=== PATIENT | female | born 1955 | race Caucasian/White ===

== ENCOUNTER → 2016-11-21 | Outpatient (CLI) | payer BC | LOC: MW.MNT 14:23 | CPT/HCPCS: 97802 ==

== ENCOUNTER → 2017-01-08 | Outpatient (CLI) | payer BC | LOC: MW.MNT 12:57 | PROVIDERS: ATTEND Nurse Practitioner Adult Health | DX: E66.01 Morbid (severe) obesity due to excess calories (principal); E78.2 Mixed hyperlipidemia; R73.03 Prediabetes | CPT/HCPCS: 97802 ==

== ENCOUNTER 2017-03-05 08:59 | Day surgery (SDC) | payer BC ==
[~2017-03-05 08:59] MED LIST: Lactated Ringers 1,000 ML IV SCH; Lidocaine 2% 5 ML SDV ONE; Propofol 200 MG/20 ML SDV ONE; fentaNYL 100 MCG/2 ML SDV ONE
[2017-03-05] MEDS ORDERED: Neostigmine Methylsulfate 1 MG/ML 5 ML Syringe ONE (09:02)
--- NOTE | 2017-03-05 09:55 | PCM.PREANE ---
Preanesthetic Assessment - Anesthesia/Transfusion/Family Hx Anesthesia History: Prior Anesthesia Without Reaction Family History of Anesthesia Reaction: No Transfusion History: No Prior Transfusion(s) Intubation History: Unknown - Review of Systems General: No Symptoms Pulmonary: No Symptoms Cardiovascular: No Symptoms Gastrointestinal: No symptoms Neurological: No Symptoms Other: Reports: None - Physical Assessment O2 Sat by Pulse Oximetry: 96 Respiratory Rate: 16 Vital Signs: Last Vital Signs Temp 36.5 C 03/05/17 09:18 Pulse 80 03/05/17 09:18 Resp 16 03/05/17 09:18 BP 131/88 03/05/17 09:18 Pulse Ox 96 03/05/17 09:18 Height: 1.63 m Weight: 129.274 kg ASA Class: 2 Mental Status: Alert & Oriented x3 Airway Class: Mallampati = 2 Dentition: Reports: Normal Dentition Thyro-Mental Finger Breadths: 2 Mouth Opening Finger Breadths: 3 ROM/Head Extension: Full Lungs: Clear to auscultation, Normal respiratory effort Cardiovascular: Regular Rate, Regular Rhythm - Allergies Allergies/Adverse Reactions: Allergies Allergy/AdvReac Type Severity Reaction Status Date / Time No Known Allergies Allergy Verified 02/28/17 11:03 - Blood Blood Available: No - Anesthesia Plan Pre-Op Medication Ordered: None - Acknowledgements Anesthesia Type Planned: MAC Pt an Appropriate Candidate for the Planned Anesthesia: Yes Alternatives and Risks of Anesthesia Discussed w Pt/Guardian: Yes Pt/Guardian Understands and Agrees with Anesthesia Plan: Yes PreAnesthesia Questionnaire HEENT History: Reports: Other (See Below) Other HEENT History: wears glasses Cardiovascular History: Reports: High Cholesterol, Hypertension Genitourinary History: Reports: None 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: Endocrine/Metabolic History: Reports: Obesity/BMI 30+ (BMI 48.9) - Past Surgical History Head Surgeries/Procedures: Reports: None (x2) Female Surgical History: Reports: Section - SUBSTANCE USE Smoking Status *Q: Never Smoker Recreational Drug Use History: No - HOME MEDS Home Medications: Home Meds Losartan/Hydrochlorothiazide [Hyzaar 50-12.5 Tablet] 1 tab PO DAILY 02/28/17 [ History] atorvaSTATin Calcium [Atorvastatin Calcium] 20 mg PO DAILY 02/28/17 [History] - CURRENT (IN HOUSE) MEDS Current Meds: Current Medications Lactated Ringer's (Ringers, Lactated) 1,000 mls @ 125 mls/hr IV ASDIRECTED BENI Discontinued Medications Fentanyl (Sublimaze) Confirm Administered Dose 100 mcg .ROUTE .STK-MED ONE Stop: 03/05/17 08:27 Glycopyrrolate () Confirm Administered Dose 1 mg .ROUTE .STK-MED ONE Stop: 03/05/17 09:03 Lidocaine (Xylocaine-Mpf 2%) Confirm Administered Dose 5 ml .ROUTE .STK-MED ONE Stop: 03/05/17 08:27 Neostigmine Methylsulfate (Neostigmine) Confirm Administered Dose 5 mg .ROUTE .STK-MED ONE Stop: 03/05/17 09:03 Propofol (Diprivan 20 Ml) Confirm Administered Dose 400 mg .ROUTE .STK-MED ONE Stop: 03/05/17 08:27
[2017-03-05] MEDS ORDERED: Lidocaine 2% 5 ML SDV ONE (11:50)
[2017-03-05] MEDS ORDERED: fentaNYL 100 MCG/2 ML SDV ONE (11:50)
--- NOTE | 2017-03-05 12:04 | PCM.OPNOTE ---
- General Post-Op/Procedure Note Date of Surgery/Procedure: 03/05/17 Findings: see dict [id number] Pre Op Diagnosis: scrn colonoscopy Post-Op Diagnosis: Same Anesthesia Technique: Moderate sedation Primary Surgeon: Herbert Rojas Complications: None Condition: Good
[2017-03-05 12:16] VITALS: BP 115/62
--- NOTE | 2017-03-05 12:27 | PCM.POSTAN ---
POST ANESTHESIA ASSESSMENT - MENTAL STATUS Mental Status: alert, oriented - RESPIRATORY Respiratory Status: respiratory rate WNL, airway patent, O2 saturation stable - CARDIOVASCULAR CV Status: pulse rate WNL, blood pressure stable - GASTROINTESTINAL GI Status: no symptoms - POST OP HYDRATION Hydration Status: adequate & stable - OBSERVATIONS Free Text/Narrative:: no anesthesia problems
--- NOTE | 2017-03-05 18:46 | OR ---
SURGEON: Herbert Rojas MD DATE OF PROCEDURE: 03/05/2017 PREOPERATIVE DIAGNOSIS: Screening colonoscopy. POSTOPERATIVE DIAGNOSIS: Diverticulosis. COMPLICATIONS: None. FINDINGS: 1. The patient is easily sedated with VISUAL EDUCATION DIRECTOR and Diprivan. The patient is soundly snoring. 2. Bowel prep is average with moderate amount of liquid stool. No semi-formed stool. 3. The patient's colon was rather redundant at the sigmoid colon requiring several maneuvering in order to get to the cecum. Cecum can only be seen at the distant indicated by ileocecal fold, one-to-one indentation, light immittance, appendix orifice is not observed. Mucosa examined upon scope pulling out. The patient has very mild diverticulosis on the right colon, just a couple of them. No signs or symptoms of diverticulitis. No mass, polyp, inflammation, stricture, AV malformation, ulceration, bleeding, and the patient has quite several small hemorrhoids, and the patient also has one large anal tag. DESCRIPTION OF PROCEDURE: The patient was taken to the endoscopy room. A time out was called, patient identified, and procedure identified. Diprivan was then administrated. Patient went from awake to sleep, hearing doctor talking or door closing is normal. Perineum inspection and digital examination were then performed. A well- lubricated colonoscope was gently inserted through the rectum, advanced past the rectosigmoid junction, the descending colon, splenic flexure, transverse colon, hepatic flexure, ascending colon, arrived to the cecum. Cecum was identified as dictated in the finding. Then the scope was carefully withdrawn while attention was paid to the mucosal surface for any abnormality. Air will be sucked out during the scope withdrawal. At the rectum, retroflexed to examine any rectal diseases, fistula or hemorrhoids. The patient tolerated procedure well. There were no intraoperative complications, and Dr. Rojas was present throughout the whole procedure. The patient would benefit from repeat colonoscopy 10 years from today or if clinically indicated. Thank you for the kind referral. RUDY / YARON /[id number]
== END 2017-03-05 13:00 | disposition home or self-care (01) ==
LOC: MW.SDS 08:59
PROVIDERS: ATTEND Surgery
DX: Z12.11 Encounter for screening for malignant neoplasm of colon (principal); K57.30 Diverticulosis of large intestine without perforation or abscess without bleeding; E78.00 Pure hypercholesterolemia, unspecified; I10 Essential (primary) hypertension; E66.9 Obesity, unspecified; Z68.42 Body mass index [BMI] 45.0-49.9, adult; Z79.899 Other long term (current) drug therapy; Z98.890 Other specified postprocedural states
CPT/HCPCS: 45378; J3010; J7120; J2704

== ENCOUNTER 2017-07-11 09:40 | Day surgery (SDC) | payer BC ==
[~2017-07-11 09:40] MED LIST changes: +Bupivacaine 25%/EPINEPHrine/PF 30 ML ONE; -Lidocaine 2% 5 ML SDV ONE; +Octyl 2-Cyanoacrylate 1 Tube ONE; -Propofol 200 MG/20 ML SDV ONE; +ceFAZolin 2 GM in Premix Bag 1 BAG IV ONE; -fentaNYL 100 MCG/2 ML SDV ONE
[2017-07-11] MEDS ORDERED: Scopolamine 1.5 MG Transdermal Patch TRDERM PRN (10:31)
--- NOTE | 2017-07-11 10:31 | PCM.PREANE ---
Preanesthetic Assessment - Anesthesia/Transfusion/Family Hx Anesthesia History: Prior Anesthesia Without Reaction Family History of Anesthesia Reaction: No Transfusion History: No Prior Transfusion(s) Intubation History: Unknown - Review of Systems General: No Symptoms Pulmonary: No Symptoms Cardiovascular: No Symptoms Gastrointestinal: No Symptoms Neurological: No Symptoms Other: Reports: None - Physical Assessment Height: 1.63 m Weight: 129.274 kg ASA Class: 3 Mental Status: Alert & Oriented x3 Airway Class: Mallampati = 2 Dentition: Reports: Normal Dentition Thyro-Mental Finger Breadths: 2 Mouth Opening Finger Breadths: 2 ROM/Head Extension: Full Lungs: Clear to Auscultation, Normal Respiratory Effort Cardiovascular: Regular Rate, Regular Rhythm - Allergies Allergies/Adverse Reactions: Allergies Allergy/AdvReac Type Severity Reaction Status Date / Time No Known Allergies Allergy Verified 02/28/17 11:03 - Blood Blood Available: No - Anesthesia Plan Pre-Op Medication Ordered: None - Acknowledgements Anesthesia Type Planned: General Anesthesia Pt an Appropriate Candidate for the Planned Anesthesia: Yes Alternatives and Risks of Anesthesia Discussed w Pt/Guardian: Yes Pt/Guardian Understands and Agrees with Anesthesia Plan: Yes PreAnesthesia Questionnaire HEENT History: Reports: Other (See Below) Other HEENT History: wears glasses Cardiovascular History: Reports: High Cholesterol, Hypertension Gastrointestinal History: Reports: None Genitourinary History: Reports: None 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: Endocrine/Metabolic History: Reports: Obesity/BMI 30+ (BMI 48.9), Other (See Below) (borderline DM (on metforin)) - Past Surgical History Head Surgeries/Procedures: Reports: None GI Surgical History: Reports: Colonoscopy Female Surgical History: Reports: Section (x2) - SUBSTANCE USE Smoking Status *Q: Never Smoker Recreational Drug Use History: No - HOME MEDS Home Medications: Home Meds Losartan/Hydrochlorothiazide [Hyzaar 50-12.5 Tablet] 1 tab PO DAILY 02/28/17 [ History] atorvaSTATin Calcium [Atorvastatin Calcium] 20 mg PO DAILY 02/28/17 [History] metFORMIN [Glucophage XR] 500 mg PO BIDMEALS 07/08/17 [History] - CURRENT (IN HOUSE) MEDS Current Meds: Current Medications Lactated Ringer's (Ringers, Lactated) 1,000 mls @ 125 mls/hr IV ASDIRECTED [facility] Last Admin: 07/11/17 10:14 Dose: 125 mls/hr Discontinued Medications Lactated Ringer's (Ringers, Lactated) 1,000 mls @ 125 mls/hr IV ASDIRECTED BENI Cefazolin Sodium/Dextrose 2 gm (/ Premix) 50 mls @ 100 mls/hr IV ONETIME ONE Stop: 04/30/17 05:29 Cefazolin Sodium/Dextrose 2 gm (/ Premix) 50 mls @ 100 mls/hr IV ONETIME ONE Stop: 07/11/17 05:29 Bupivacaine HCl/Epinephrine Bitart (Sensorc Mpf 0.25%-Epi [id number]) Confirm Administered Dose 30 mls @ as directed .ROUTE .STK-MED ONE Stop: 07/11/17 08:28 Octyl Cyanoacrylate (Dermabond Advance) Confirm Administered Dose 1 applic .ROUTE .STK-MED ONE Stop: 07/11/17 08:32
[2017-07-11] MEDS ORDERED: Propofol 200 MG/20 ML SDV ONE (10:32)
[2017-07-11] MEDS ORDERED: Midazolam 1 MG/ML 2 ML SDV ONE (10:32)
[2017-07-11] MEDS ORDERED: fentaNYL 100 MCG/2 ML SDV ONE (10:32)
[2017-07-11] MEDS ORDERED: Neostigmine Methylsulfate 1 MG/ML 5 ML Syringe ONE ×2 (10:33→10:41)
[2017-07-11] MEDS ORDERED: Ketorolac 30 MG/ML SDV ONE (10:33)
[2017-07-11] MEDS ORDERED: Ondansetron 4 MG/2 ML SDV ONE (10:33)
[2017-07-11] MEDS ORDERED: Rocuronium 10 MG/ML 10 ML Syringe ONE (10:33)
[2017-07-11] MEDS ORDERED: ceFAZolin 1 GM Vial ONE (11:30)
--- NOTE | 2017-07-11 12:24 | PCM.OPNOTE ---
- General Post-Op/Procedure Note Date of Surgery/Procedure: 07/11/17 Operative Procedure(s): incarcerated incisional hernia repair, no mesh used Findings: large hernia sac 7 cm, but small hernia neck 2 cm, chronically fibrosed suggested chronicity; repaired primarily, no mesh used; hernia is the upper extreme of lower ML incision, right centered at umb; [id number] Pre Op Diagnosis: incarcerated incisional hernia Post-Op Diagnosis: Same Anesthesia Technique: General ET Tube Primary Surgeon: Herbert Rojas Pathology: hernia sac Complications: None Condition: Good
[2017-07-11] MEDS ORDERED: Acetaminophen/oxyCODONE 325-10 MG Tab PO ONE (12:27)
[2017-07-11] MEDS: fentaNYL 100 MCG/2 ML SDV IVPUSH PRN ×2 (12:34→12:40)
--- NOTE | 2017-07-11 12:53 | PCM.POSTAN ---
POST ANESTHESIA ASSESSMENT - MENTAL STATUS Mental Status: Alert, Oriented - RESPIRATORY Respiratory Status: Respiratory Rate WNL, Airway Patent, O2 Saturation Stable - CARDIOVASCULAR CV Status: Pulse Rate WNL, Blood Pressure Stable - GASTROINTESTINAL GI Status: No Symptoms - PAIN Pain Score: 0 - POST OP HYDRATION Hydration Status: Adequate & Stable
--- NOTE | 2017-07-11 13:31 | OR ---
SURGEON: Herbert Rojas MD DATE OF PROCEDURE: 07/11/2017 PREOPERATIVE DIAGNOSIS: Incarcerated incisional hernia. POSTOPERATIVE DIAGNOSIS: Incarcerated incisional hernia. PROCEDURE PERFORMED: Repair with primary, no mesh used. COMPLICATIONS: None. FINDINGS: Large hernia sac about 7 cm, chronically fibrosed with omentum inside, but the neck is only 2 cm by primary repair, no mesh used. PROCEDURE IN DETAIL: The patient was taken to the operating room and placed in a supine position. Upon induction of general endotracheal anesthesia, the patient's abdomen was prepped and draped in a sterile fashion. Ioban was used prophylactically. Time- out was being called, patient was identified, procedure identified, antibiotic given. Procedure was then started. After assessment of appropriate landmark, a longitudinal incision using previous surgical incision beveled to the left of the umbilicus was made. This encountered a large hernia sac. Gently dissected around the hernia sac and opened the hernia sac. A large amount of omentum inside, chronically fibrosed. In order to reduce the hernia sac, the hernia opening was enlarged on either ends and then the omentum pushed back to the abdominal cavity. Using 0 Ethibond simple interrupted, the hernia defect was repaired followed with extensive irrigation. Skin approximated by use of skin staple. Followed by appropriate dressing. The patient was then awakened, extubated, and transferred to recovery in hemodynamically stable condition. Prior to closing, sponge count and instrument count were correct. RUDY / YARON /[id number]
[2017-07-11 14:26] VITALS: BP 127/64
== END 2017-07-11 14:22 | disposition home or self-care (01) ==
LOC: MW.SDS 09:40
PROVIDERS: ATTEND Surgery
DX: K43.0 Incisional hernia with obstruction, without gangrene (principal); I10 Essential (primary) hypertension; E78.00 Pure hypercholesterolemia, unspecified; E11.9 Type 2 diabetes mellitus without complications; E66.9 Obesity, unspecified; Z68.42 Body mass index [BMI] 45.0-49.9, adult; Z79.84 Long term (current) use of oral hypoglycemic drugs; Z79.899 Other long term (current) drug therapy; Z98.890 Other specified postprocedural states
CPT/HCPCS: 49561; A9270; J0690; J1885; J2250; J2405; J3010; J7120; 00752; 88302; J2704

== ENCOUNTER 2020-07-04 09:01 | Inpatient (IN) | payer BC ==
[~2020-07-04 09:01] MED LIST changes: -Bupivacaine 25%/EPINEPHrine/PF 30 ML ONE; +Famotidine 20 MG/2 ML SDV IVPUSH SCH; -Octyl 2-Cyanoacrylate 1 Tube ONE; +Ropivacaine 49.25 ML, Ketorolac 30 MG, EPINEPHrine 0.5 MG, cloNIDine 80 MCG in Sodium C... INJECT SCH; +Scopolamine 1.5 MG Transdermal Patch TRDERM SCH; +Tranexamic Acid 1,000 MG in Sodium Chloride 0.9% 100 ML IV ONE; -ceFAZolin 2 GM in Premix Bag 1 BAG IV ONE
[2020-07-04] MEDS ORDERED: Famotidine 20 MG/2 ML SDV ONE (09:56)
[2020-07-04] MEDS ORDERED: Scopolamine 1.5 MG Transdermal Patch ONE (09:57)
[2020-07-04] MEDS ORDERED: Propofol 200 MG/20 ML SDV ONE ×2 (10:27→10:32)
[2020-07-04] MEDS ORDERED: Midazolam 1 MG/ML 2 ML SDV ONE (10:27)
[2020-07-04] MEDS ORDERED: fentaNYL 100 MCG/2 ML SDV ONE ×2 (10:27→13:45)
[2020-07-04] MEDS ORDERED: Ondansetron 4 MG/2 ML SDV ONE (10:30)
--- NOTE | 2020-07-04 11:00 | PCM.PREANE ---
Preanesthetic Assessment - Anesthesia/Transfusion/Family Hx Anesthesia History: Prior Anesthesia Without Reaction Family History of Anesthesia Reaction: No Transfusion History: No Prior Transfusion(s) Intubation History: Unknown - Review of Systems General: No Symptoms Pulmonary: No Symptoms Cardiovascular: No Symptoms Gastrointestinal: No Symptoms Neurological: No Symptoms Other: Reports: None - Physical Assessment Height: 5 ft 4 in Weight: 126.099 kg ASA Class: 3 Mental Status: Alert & Oriented x3 Airway Class: Mallampati = 2 Dentition: Reports: Normal Dentition Thyro-Mental Finger Breadths: 3 Mouth Opening Finger Breadths: 3 ROM/Head Extension: Limited/Partial Lungs: Clear to Auscultation, Normal Respiratory Effort Cardiovascular: Regular Rate, Regular Rhythm - Lab Values: Laboratory Last Values SARS-CoV-2 RNA (MATHEW) NEGATIVE (NEGATIVE) 07/04/20 09:12 - Allergies Allergies/Adverse Reactions: Allergies Allergy/AdvReac Type Severity Reaction Status Date / Time No Known Allergies Allergy Verified 06/28/20 07:30 - Blood Blood Available: No - Anesthesia Plan Pre-Op Medication Ordered: None - Acknowledgements Anesthesia Type Planned: Spinal (general anesthesia back-up plan) Pt an Appropriate Candidate for the Planned Anesthesia: Yes Alternatives and Risks of Anesthesia Discussed w Pt/Guardian: Yes Pt/Guardian Understands and Agrees with Anesthesia Plan: Yes PreAnesthesia Questionnaire HEENT History: Reports: Other (See Below) Other HEENT History: wears glasses Cardiovascular History: Reports: High Cholesterol, Hypertension Respiratory History: Reports: None Gastrointestinal History: Reports: None Genitourinary History: Reports: None 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: Musculoskeletal History: Reports: Osteoarthritis Neurological History: Reports: None Psychiatric History: Reports: None Endocrine/Metabolic History: Reports: Obesity/BMI 30+ (BMI 47.7), Other (See Below) Other Endocrine/Metabolic History: borderline diabetic, 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 Hematologic History: Reports: None Immunologic History: Reports: None Oncologic (Cancer) History: Reports: None Dermatologic History: Reports: None - Past Surgical History Head Surgeries/Procedures: Reports: None HEENT Surgical History: Reports: None Cardiovascular Surgical History: Reports: None Respiratory Surgical History: Reports: None GI Surgical History: Reports: Colonoscopy, Hernia, Abdominal (umbilical hernia) Female Surgical History: Reports: Section (x2) Endocrine Surgical History: Reports: None Neurological Surgical History: Reports: None Musculoskeletal Surgical History: Reports: None Oncologic Surgical History: Reports: None Dermatological Surgical History: Reports: None - SUBSTANCE USE Smoking Status *Q: Never Smoker Recreational Drug Use History: No - HOME MEDS Home Medications: Home Meds atorvaSTATin Calcium [Atorvastatin Calcium] 20 mg PO DAILY 02/28/17 [History] Losartan Potassium 50 mg PO DAILY 06/02/20 [History] - CURRENT (IN HOUSE) MEDS Current Meds: Current Medications Famotidine (Pepcid) 40 mg IVPUSH ONARRIVE BENI Ropivacaine 49.25 ml/Ketorolac Tromethamine 30 mg/Epinephrine HCl 0.5 mg/Clonidine HCl 80 mcg/ Sodium Chloride 75 mls @ 50 mls/sec INJECT ASDIRECTED BENI Cefazolin Sodium/Dextrose 3 gm (/ Premix) 75 mls @ 100 mls/hr IV ONCALL BENI Lactated Ringer's (Ringers, Lactated) 1,000 mls @ 100 mls/hr IV ASDIRECTED BENI Scopolamine (Transderm-Scop) 1.5 mg TRDERM ONARRIVE BENI Discontinued Medications Famotidine (Pepcid) Confirm Administered Dose 40 mg .ROUTE .STK-MED ONE Stop: 07/04/20 09:57 Fentanyl (Sublimaze) Confirm Administered Dose 100 mcg .ROUTE .STK-MED ONE Stop: 07/04/20 10:28 Tranexamic Acid 1,000 mg/ (Sodium Chloride) 110 mls @ 600 mls/hr IV ASDIRECTED ONE Stop: 07/04/20 06:10 Lidocaine HCl (Xylocaine-Mpf 1%) Confirm Administered Dose 5 ml .ROUTE .STK-MED ONE Stop: 07/04/20 10:31 Midazolam HCl (Versed 1 Mg/Ml) Confirm Administered Dose 2 mg .ROUTE .STK-MED ONE Stop: 07/04/20 10:28 Ondansetron HCl (Zofran) Confirm Administered Dose 4 mg .ROUTE .STK-MED ONE Stop: 07/04/20 10:31 Propofol (Diprivan 20 Ml) Confirm Administered Dose 200 mg .ROUTE .STK-MED ONE Stop: 07/04/20 10:28 Propofol (Diprivan 20 Ml) Confirm Administered Dose 200 mg .ROUTE .STK-MED ONE Stop: 07/04/20 10:33 Scopolamine (Transderm-Scop) Confirm Administered Dose 1.5 mg .ROUTE .STK-MED ONE Stop: 07/04/20 09:58
[2020-07-04] MEDS ORDERED: ceFAZolin/Dextrose,Iso-Osmotic 2 GM/50 ML Duplex Bag IV ONE (11:34)
[2020-07-04] MEDS ORDERED: EPINEPHrine 1:10,000 1 MG/10 ML Syringe IVPUSH PRN (12:39)
[2020-07-04] MEDS ORDERED: Albuterol 0.083% 2.5 MG/3 ML Neb Soln NEB PRN (12:39)
[2020-07-04] MEDS ORDERED: Naloxone 0.4 MG/ML Syringe IVPUSH PRN (12:39)
[2020-07-04] MEDS ORDERED: fentaNYL 100 MCG/2 ML SDV IVPUSH PRN (12:39)
[2020-07-04] MEDS ORDERED: 50% Dextrose in Water 50 ML Syringe IVPUSH PRN (12:39)
[2020-07-04] MEDS ORDERED: Atropine 0.1 MG/ML 10 ML Syringe IVPUSH PRN ×2 (12:39)
[2020-07-04] MEDS ORDERED: Ondansetron 4 MG/2 ML SDV IVPUSH PRN (12:40)
[2020-07-04] MEDS ORDERED: HYDROmorphone 2 MG/ML Syringe IVPUSH PRN (12:40)
--- NOTE | 2020-07-04 12:47 | PCM.SN.2 ---
- Free Text/Narrative Note: Consent signed. In sitting position for spinal. Aseptic technique. Patient's back prepped with povidone iodine and draped. 1% lidocaine 3ml for skin infiltration at l3-l4 level. 2 attempts. at l3 -l4. 25 gauge pencan needle +csf, no heme or paresthesias with injection. 0.75% hyperbaric bupivacaine 1.6 ml. T8 sensory level. The patient was able to communicate throughout the entire procedure.
[2020-07-04] MEDS ORDERED: Aluminum Hydroxide/Magnesium Hydroxide/Simethicone Susp 30 ML Cup PO PRN (14:26)
[2020-07-04] MEDS ORDERED: Sodium Chloride 0.9% 10 ML Syringe FLUSH PRN (14:26)
[2020-07-04] MEDS ORDERED: diphenhydrAMINE 25 MG Cap PO PRN (14:26)
[2020-07-04] MEDS ORDERED: traMADol 50 MG Tab PO PRN (14:26)
[2020-07-04] MEDS ORDERED: Sodium Chloride 0.9% 2.5 ML Syringe FLUSH PRN (14:26)
[2020-07-04] MEDS ORDERED: Bisacodyl 10 MG Supp RECTAL PRN (14:26)
[2020-07-04] MEDS ORDERED: Docusate Sodium 100 MG Cap PO PRN (14:26)
[2020-07-04] MEDS ORDERED: Morphine 2 MG/ML SYRINGE IVPUSH PRN (14:26)
--- NOTE | 2020-07-04 14:38 | PCM.OPNOTE ---
- General Post-Op/Procedure Note Date of Surgery/Procedure: 07/04/20 Operative Procedure(s): Left total knee replacement using [employer] knee system Findings: Left knee medial compartment grade 4 osteoarthritis, lateral compartment grade 1 osteoarthritis, patellofemoral compartment grade 1 osteoarthritis. Pre Op Diagnosis: Left knee grade 4 medial compartment osteoarthritis Post-Op Diagnosis: Left knee grade 4 medial compartment osteoarthritis Anesthesia Technique: General LMA, Spinal Primary Surgeon: Kristofer Ibrahim Stemming Machine Operator: Aline Rios Stemming Machine Operator Was Necessary: Retraction and positioning Pathology: Bone cuts to pathology. EBL in mLs: 15 Complications: None Free Text/Narrative:: The patient was medically optimized and cleared for surgery. The risks and benefits of surgery were discussed with the patient and her . All questions were answered. Patient consented to proceed with surgery. The patient was taken to the operating room. After adequate spinal and general anesthesia, she was placed in a supine position. Tourniquet was placed around the left proximal thigh. Left lower extremities prepped and draped in usual sterile manner. The leg was elevated and the tourniquet was inflated. A midline incision was made with a scalpel centered over the patella. Subtenons tissue wounds were incised electrocautery. A medial parapatellar arthrotomy was performed. The patella was everted and soft tissue was excised. The knee was flexed. The femur was sized with an intramedullary alignment guide and noted to be a size 6 narrow. The lug holes were punched without any significant overhang noted. A cruciate retaining component was used. The tibia was cut with an intramedullary alignment guide. The tibia was sized to a size 4. There was good stability and range of motion with a 9 mm polyethylene insert. The patella was evaluated and noted to have only grade 1 changes with small marginal osteophytes. The patella was not resurfaced. Trial components were removed. The components were sequentially cemented with antibiotic cement. First the #4 tibia was implanted. Excess cement was removed. The 9 mm polyethylene component was inserted. The size 6 narrow cruciate retaining Oxinium femoral component was inserted and excess cement was removed. The knee was placed through range of motion and reinspected and any additional cement was removed. Periarticular injections were performed in the posterior aspect of the knee earlier in the procedure in the anterior aspect of the knee after cementing the components. Retinaculum was closed with interrupted #1 Vicryl suture. Deep subcutaneous tissue was closed with interrupted #1 Vicryl suture. Subtenons tissue was closed interrupted 2-0 Vicryl suture. Skin was closed with interrupted horizontal mattress 2-0 nylon suture because the skin was quite thin and concerned about wound healing issues. Sterile dressing was applied and the patient was accompanied to recovery in a stable condition. Pain management: Periarticular blocks, abductor canal nerve block, Toradol, oxycodone, acetaminophen. Venous thromboembolism prophylaxis: Aspirin for 90 days due to no personal or family history of venous thromboembolic events. Prophylactic antibiotics: 24 hours of intravenous antibiotics and then 7 days of oral antibiotics because of her high risk of infection due to her BMI. Restrictions: Weightbearing as tolerated on left lower extremity with assistive device as needed. Knee range of motion as tolerated. Rehabilitation according to the total knee arthroscopy protocol. No restrictions.
[2020-07-04] MEDS ORDERED: Bupivacaine 0.25% 10 ML SDV ONE (14:42)
[2020-07-04] MEDS ORDERED: Ketorolac 30 MG/ML SDV ONE (14:48)
--- NOTE | 2020-07-04 15:35 | PCM.POSTAN ---
POST ANESTHESIA ASSESSMENT - MENTAL STATUS Mental Status: Alert, Oriented - VITAL SIGNS Vital Signs: Last Vital Signs Temp 36.0 C L 07/04/20 14:24 Pulse 58 L 07/04/20 15:20 Resp 10 L 07/04/20 15:20 BP 117/72 07/04/20 15:20 Pulse Ox 97 07/04/20 15:20 - RESPIRATORY Respiratory Status: Respiratory Rate WNL, Airway Patent, O2 Saturation Stable - CARDIOVASCULAR CV Status: Pulse Rate WNL, Blood Pressure Stable - GASTROINTESTINAL GI Status: No Symptoms - PAIN Pain Score: 0 - POST OP HYDRATION Hydration Status: Adequate & Stable - OBSERVATIONS Free Text/Narrative:: No anesthesia problems
--- NOTE | 2020-07-04 16:04 | CR ---
INDICATION: Postop left knee. TECHNIQUE: AP and cross-table lateral views of the left knee. COMPARISON: 08/28/2019. FINDINGS: Immediate postop changes of left total knee arthroplasty. Prosthetic components well-seated and aligned. IMPRESSION: Immediate postop changes of left total knee arthroplasty without evidence of complication. Dictated by Luis F Jefferson MD @ Jul 04 2020 4:02PM Signed by Dr. Luis F Jefferson @ Jul 04 2020 4:03PM
[2020-07-04] MEDS: oxyCODONE 5 MG Tab PO PRN ×2 (16:43→20:41)
[2020-07-04] MEDS: Aspirin 325 MG Tab PO SCH (19:24)
[2020-07-04] MEDS: Ketorolac 30 MG/ML SDV IVPUSH SCH (20:43)
[2020-07-04] MEDS: ceFAZolin 2 GM in Premix Bag 1 BAG IV SCH (20:44)
[2020-07-05] MEDS: oxyCODONE 5 MG Tab PO PRN ×3 (01:39→13:30)
[2020-07-05] MEDS: Ketorolac 30 MG/ML SDV IVPUSH SCH (01:39)
[2020-07-05] MEDS: ceFAZolin 2 GM in Premix Bag 1 BAG IV SCH (03:29)
[2020-07-05] MEDS: Aspirin 325 MG Tab PO SCH (08:08)
--- NOTE | 2020-07-05 08:21 | PCM48HPAN ---
Post Anesthesia Note - EVALUATION WITHIN 48HRS OF ANESTHETIC Vital Signs in Normal Range: Yes Patient Participated in Evaluation: Yes Respiratory Function Stable: Yes Airway Patent: Yes Cardiovascular Function Stable: Yes Hydration Status Stable: Yes Pain Control Satisfactory: Yes (Reports minimal to no pain) Nausea and Vomiting Control Satisfactory: Yes (Denies N/V, taking PO well) Mental Status Recovered: Yes Vital Signs: Last Vital Signs Temp 37.1 C 07/05/20 07:45 Pulse 75 07/05/20 07:45 Resp 18 07/05/20 07:45 BP 109/61 07/05/20 08:08 Pulse Ox 94 L 07/05/20 07:45
[2020-07-05] MEDS ORDERED: Losartan 50 MG Tab PO SCH (09:00)
[2020-07-05] MEDS ORDERED: Polyethylene Glycol 3350 Powder 17 GM Packet PO SCH (09:00)
[2020-07-05] MEDS ORDERED: Famotidine 20 MG Tab PO SCH (09:00)
[2020-07-05 11:26] VITALS: BP 95/58; PULSE 85
--- NOTE | 2020-07-05 11:29 | PCM.DCSUM1 ---
Discharge Summary - Hospital Course Free Text/Narrative:: Amrita underwent LEFT TOTAL KNEE ARTHROPLASTY 07/04/[address] Vance Ibrahim. No known surgical complications. Admitted to med/surg for post-op care, pain control and PT. POD#1,she is doing well. No c/o N/V Tolerating food/fluids and narcotic medication without N/V VSS/afebrile. Hg 11.6 today. Up to commode last evening to void, as she still did not have full sensation from spinal. Pain controlled with oxycodone. Diligent use of Polar Care ice therapy. Surgical dressing CDI. Antibiotic prophylaxis : Ancef 3gm pre-operatively, then 2 gm q8h x additional 2 doses. She feels ready for discharge home later today - Discharge Data Discharge Date: 07/05/20 Discharge Disposition: Home, Self-Care 01 Condition: Good - Referral to Home Health Primary Care Physician: Yunier Smith MD - Patient Summary/Data Operative Procedure(s) Performed: Left total knee replacement using [employer] staff [employer] knee system Consults: Consultations 07/04/20 14:27 PT Evaluation and Treatment [CONS] Routine - Patient Instructions Diet: Usual Diet as Tolerated Activity: Apply Ice (frequent use of Polar Ice therapy when resting.), Elevate Extremity (When elevating leg, do NOT place pillow under your knee. Place pillow under heel of foot to elevate), Full Weight Bearing, No Strenuous Activities Activity, Other: Use walker when ambulating Driving, Other: No driving while taking narcotic pain medication Showering/Bathing: May Shower (when showering, you do not need to cover the AquaCell bandage), No Tub Bathing/Swimming (no hot tubs) Other/Special Instructions: Attend outpatient physical therapy as scheduled. Take Aspirin daily for blood clot prevention. For pain management...Ibuprofen 800mg three times daily routinely, then can take either oxycodone in betwen as needed. antibiotic prescription has been sent to [facility]. Please take for the next 7 days as prescribed as a preventive intervention to prevent against infection. Call orthopedic clinic with any questions or concerns - Discharge Plan Prescriptions/Med Rec: Aspirin 325 mg PO DAILY #90 tablet Cefadroxil [Duricef] 500 mg PO Q12HR 7 Days #14 cap Ibuprofen 800 mg PO TID #60 tablet oxyCODONE 5 - 10 mg PO Q4H PRN #40 tablet PRN Reason: Pain Home Medications: Home Meds atorvaSTATin Calcium [Atorvastatin Calcium] 20 mg PO DAILY 02/28/17 [History] Losartan Potassium 50 mg PO DAILY 06/02/20 [History] Aspirin 325 mg PO DAILY #90 tablet 07/04/20 [Rx] Cefadroxil [Duricef] 500 mg PO Q12HR 7 Days #14 cap 07/04/20 [Rx] Docusate Sodium [Colace] 100 mg PO BID PRN cap 07/04/20 [Rx] polyethylene glycoL 3350 [MiraLAX] 17 gm PO DAILY packet 07/04/20 [Rx] Ibuprofen 800 mg PO TID #60 tablet 07/05/20 [Rx] oxyCODONE 5 - 10 mg PO Q4H PRN #40 tablet 07/05/20 [Rx] Patient Handouts: Oxycodone tablets or capsules, Ibuprofen tablets and capsu les, Total Knee Replacement, Care After, [id number], Aspirin, ASA oral tablets Referrals: Aline Rios NP [Nurse Practitioner] - 07/19/20 10:00 am - Discharge Summary/Plan Comment DC Time >30 min.: No Discharge Summary/Plan Comment: Follow up appt scheduled with myself in 2 weeks for suture removal. Outpatient PT set up at [facility] at . Rx written for FWW. She has a wheeled walker with a seat at home, but recommended use of FWW initially until more comfortable with ambulation/transferring. AquaCell dressing will be sent home for her to change dressing in 7 days. Discharged home with available for assistance. DVT prophylaxis : ASA 325mg daily x3 months. Compression stockings on am/off hs Antibiotic prophylaxis : cefadroxil 500mg BID x7days, Rx sent to [facility] Pain management : Ibuprofen 800mg TID and oxycodone supplemented as needed/as directed. If she has acute concerns or questions, she was informed to contact orthopedic clinic. - General Info Date of Service: 07/05/20 (0800) Admission Dx/Problem (Free Text: Left knee osteoarthritis s/p Left total knee arthroplasty Functional Status: Reports: Pain Controlled, Tolerating Diet (ate supper and breakfast this morning without N/V), Urinating - Review of Systems General: Denies: Fever Pulmonary: Denies: Shortness of Breath Cardiovascular: Reports: No Symptoms. Denies: Chest Pain, Lightheadedness Gastrointestinal: Denies: Abdominal Pain, Constipation, Nausea, Vomiting Musculoskeletal: Reports: Joint Pain (post-surgical knee pain) Neurological: Reports: No Symptoms Psychiatric: Reports: No Symptoms - Patient Data Vitals - Most Recent: Last Vital Signs Temp 37.1 C 07/05/20 07:45 Pulse 75 07/05/20 07:45 Resp 18 07/05/20 07:45 BP 109/61 07/05/20 08:08 Pulse Ox 94 L 07/05/20 07:45 Weight - Most Recent: 126.099 kg I&O - Last 24 hours: Intake & Output 07/04/20 07/05/20 07/05/20 22:59 06:59 14:59 Intake Total 2049 1200 Balance 2049 1200 Lab Results - Last 24 hrs: Laboratory Results - last 24 hr 07/05/20 Range/Units 05:37 Hgb 11.6 L (12.0-16.0) g/dL Hct 37.4 (36.0-46.0) % Med Orders - Current: Current Medications Al Hydroxide/Mg Hydroxide (Mag-Al Plus) 30 ml PO Q4H PRN PRN Reason: Indigestion Aspirin (Aspirin) 325 mg PO DAILY [facility] Last Admin: 07/05/20 08:08 Dose: 325 mg Documented by: Bisacodyl (Dulcolax) 10 mg RECTAL DAILY PRN PRN Reason: Constipation Diphenhydramine HCl (Benadryl) 25 - 50 mg PO Q6H PRN PRN Reason: Itching Docusate Sodium (Colace) 100 mg PO BID PRN PRN Reason: Constipation Last Admin: 07/05/20 01:40 Dose: 100 mg Documented by: Famotidine (Pepcid) 40 mg PO DAILY [facility] Last Admin: 07/05/20 08:09 Dose: 40 mg Documented by: Lactated Ringer's (Ringers, Lactated) 1,000 mls @ 100 mls/hr IV ASDIRECTED [facility] Last Admin: 07/04/20 11:24 Dose: 100 mls/hr Documented by: Losartan Potassium (Cozaar) 50 mg PO DAILY [facility] Last Admin: 07/05/20 08:08 Dose: 50 mg Documented by: Morphine Sulfate (Morphine) 1 - 2 mg IVPUSH Q3H PRN PRN Reason: Pain Oxycodone HCl (Oxycodone) 5 - 10 mg PO Q4H PRN PRN Reason: Pain Last Admin: 07/05/20 08:09 Dose: 10 mg Documented by: Polyethylene Glycol (Miralax) 17 gm PO DAILY [facility] Last Admin: 07/05/20 08:09 Dose: 17 gm Documented by: Scopolamine (Transderm-Scop) 1.5 mg TRDERM ONARRIVE [facility] Last Admin: 07/04/20 11:25 Dose: 1.5 mg Documented by: Sodium Chloride (Saline Flush) 10 ml FLUSH ASDIRECTED PRN PRN Reason: Keep Vein Open Sodium Chloride (Saline Flush) 2.5 ml FLUSH ASDIRECTED PRN PRN Reason: Keep Vein Open Tramadol HCl (Ultram) 50 - 100 mg PO Q6H PRN PRN Reason: Pain Discontinued Medications Albuterol (Proventil Neb Soln) 2.5 mg NEB ONETIME PRN PRN Reason: Wheezing Atropine Sulfate (Atropine 0.1 Mg/Ml) 0.5 mg IVPUSH ASDIRECTED PRN PRN Reason: Hypo-perfusion Atropine Sulfate (Atropine 0.1 Mg/Ml) 1 mg IVPUSH ASDIRECTED PRN PRN Reason: Hypo-Perfusion Bupivacaine HCl (Sensorcaine-Mpf 0.25%) Confirm Administered Dose 30 ml .ROUTE .STK-MED ONE Stop: 07/04/20 14:43 Cefazolin Sodium/Dextrose (Ancef) Confirm Administered Dose 2 gm IV .STK-MED ONE Stop: 07/04/20 11:35 Dextrose/Water (Dextrose 50% In Water) 50 ml IVPUSH ASDIRECTED PRN PRN Reason: Hypoglycemia Epinephrine HCl (Epinephrine 1:10,000) 1 mg IVPUSH ASDIRECTED PRN PRN Reason: ACLS Guidelines Famotidine (Pepcid) 40 mg IVPUSH ONARRIVE [facility] Last Admin: 07/04/20 11:00 Dose: 40 mg Documented by: Famotidine (Pepcid) Confirm Administered Dose 40 mg .ROUTE .STK-MED ONE Stop: 07/04/20 09:57 Last Admin: 07/04/20 16:40 Dose: Not Given Documented by: Fentanyl (Sublimaze) Confirm Administered Dose 100 mcg .ROUTE .STK-MED ONE Stop: 07/04/20 10:28 Fentanyl (Sublimaze) 50 mcg IVPUSH Q5M PRN PRN Reason: Pain Fentanyl (Sublimaze) Confirm Administered Dose 100 mcg .ROUTE .STK-MED ONE Stop: 07/04/20 13:46 Hydromorphone HCl (Dilaudid) 0.25 mg IVPUSH .Q5MIN PRN PRN Reason: Pain (severe 7-10) Stop: 07/05/20 12:40 Last Admin: 07/04/20 15:05 Dose: 1 mg Documented by: Tranexamic Acid 1,000 mg/ (Sodium Chloride) 110 mls @ 600 mls/hr IV ASDIRECTED ONE Stop: 07/04/20 06:10 Last Admin: 07/04/20 16:40 Dose: Not Given Documented by: Ropivacaine 49.25 ml/Ketorolac Tromethamine 30 mg/Epinephrine HCl 0.5 mg/Clonidine HCl 80 mcg/ Sodium Chloride 75 mls @ 50 mls/sec INJECT ASDIRECTED [facility] Cefazolin Sodium/Dextrose 3 gm (/ Premix) 75 mls @ 100 mls/hr IV ONCALL [facility] Acetaminophen (Ofirmev) Confirm Administered Dose 100 mls @ as directed .ROUTE .STK-MED ONE Stop: 07/04/20 11:26 Cefazolin Sodium/Dextrose (Ancef) Confirm Administered Dose 50 mls @ as directed .ROUTE .STK-MED ONE Stop: 07/04/20 12:08 Cefazolin Sodium/Dextrose 2 gm (/ Premix) 50 mls @ 100 mls/hr IV Q8H [facility] Stop: 07/05/20 04:29 Last Admin: 07/05/20 03:29 Dose: 100 mls/hr Documented by: Ketorolac Tromethamine (Toradol) 30 mg IVPUSH Q6H [facility] Stop: 07/05/20 05:00 Last Admin: 07/05/20 01:39 Dose: 30 mg Documented by: Ketorolac Tromethamine (Toradol) Confirm Administered Dose 30 mg .ROUTE .STK-MED ONE Stop: 07/04/20 14:49 Last Admin: 07/04/20 14:47 Dose: 30 mg Documented by: Lidocaine HCl (Xylocaine-Mpf 1%) Confirm Administered Dose 5 ml .ROUTE .STK-MED ONE Stop: 07/04/20 10:31 Midazolam HCl (Versed 1 Mg/Ml) Confirm Administered Dose 2 mg .ROUTE .STK-MED ONE Stop: 07/04/20 10:28 Naloxone HCl (Narcan) 0.1 mg IVPUSH ASDIRECTED PRN PRN Reason: Respiratory Depression Ondansetron HCl (Zofran) Confirm Administered Dose 4 mg .ROUTE .STK-MED ONE Stop: 07/04/20 10:31 Ondansetron HCl (Zofran) 4 mg IVPUSH ONETIME PRN PRN Reason: Nausea/Vomiting Propofol (Diprivan 20 Ml) Confirm Administered Dose 200 mg .ROUTE .STK-MED ONE Stop: 07/04/20 10:28 Propofol (Diprivan 20 Ml) Confirm Administered Dose 200 mg .ROUTE .STK-MED ONE Stop: 07/04/20 10:33 Scopolamine (Transderm-Scop) Confirm Administered Dose 1.5 mg .ROUTE .STK-MED ON E Stop: 07/04/20 09:58 Last Admin: 07/04/20 16:40 Dose: Not Given Documented by: Tranexamic Acid (Cyklokapron) Confirm Administered Dose 1,000 mg .ROUTE .STK-MED ONE Stop: 07/04/20 12:26 - Exam Quality Assessment: Reports: DVT Prophylaxis (ASA, SCDs) General: Reports: Alert, Oriented, Cooperative, No Acute Distress HEENT: Reports: Pupils Equal Lungs: Reports: Normal Respiratory Effort Cardiovascular: Reports: Regular Rate (pp2+) Extremities: No Pedal Edema Skin: Reports: Warm, Dry Wound/Incisions: Reports: Dressing Dry and Intact, No Drainage. Denies: Erythema Neurological: Reports: Normal Speech Psy/Mental Status: Reports: Alert, Normal Affect, Normal Mood Physical Findings Comments:: Surgical dressing CDI. Dressing removed. Incision CDI. Well approximated. No active drainage. Sutures intact. No surrounding erythema. Mild soft tissue swelling.
== END 2020-07-05 16:15 | disposition home or self-care (01) | DRG 302 ==
LOC: MW.SDS 09:01 → EDSTATUS 12:00 → MW.MS 15:55
PROVIDERS: ADMIT Orthopaedic Surgery; ATTEND Orthopaedic Surgery
PROC: 0SRD0J9 Replacement of Left Knee Joint with Synthetic Substitute, Cemented, Open Approach (ICD-10-PCS; principal; 2020-07-04)
DX: M17.12 Unilateral primary osteoarthritis, left knee (principal); I10 Essential (primary) hypertension; E66.9 Obesity, unspecified; E78.00 Pure hypercholesterolemia, unspecified; K43.2 Incisional hernia without obstruction or gangrene; Z20.828 Contact with and (suspected) exposure to other viral communicable diseases; R91.1 Solitary pulmonary nodule; E11.9 Type 2 diabetes mellitus without complications; H54.7 Unspecified visual loss; Z79.899 Other long term (current) drug therapy; Z79.82 Long term (current) use of aspirin; Z79.1 Long term (current) use of non-steroidal anti-inflammatories (NSAID)
CPT/HCPCS: 01402; 36415; 73560-26-LT; 73560-LT; 85014; 85018; 88304; 88311; 97116-GP; 97162-GP; A9270-GY; C1776; J0131; J0171; J0690; J0735; J1170; J1885; J2001; J2250; J2405; J2704; J2795; J3010; J3490; J7120; U0002

== ENCOUNTER 2020-11-17 13:19 | Emergency (ER) | payer BC ==
--- NOTE | 2020-11-17 13:44 | EDM.PDOC ---
ED HPI GENERAL MEDICAL PROBLEM - General Chief Complaint: Cardiovascular Problem Stated Complaint: HBP Time Seen by Provider: 11/17/20 13:42 Source of Information: Reports: Patient History Limitations: Reports: No Limitations - History of Present Illness INITIAL COMMENTS - FREE TEXT/NARRATIVE: He 5-year-old female who presents today for elevated blood pressure. Patient that she had her knee replacement she went to orthopedic physician due to pain in her left knee where she was found to have a blood pressure greater than 200 return to the ED. Patient here denies any abdominal status chest pain urinary symptoms or other complaints. Patient states that her Ortho doctor not sent her to the ER she not come for any other complaints. 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: Musculoskeletal History: Reports: Osteoarthritis Neurological History: Reports: None Psychiatric History: Reports: None Endocrine/Metabolic History: Reports: Obesity/BMI 30+, Other (See Below) Other Endocrine/Metabolic History: borderline diabetic, 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 Hematologic History: Reports: None Immunologic History: Reports: None Oncologic (Cancer) History: Reports: None Dermatologic History: Reports: None - Infectious Disease History Infectious Disease History: Reports: Chicken Pox, Shingles - Past Surgical History Head Surgeries/Procedures: Reports: None HEENT Surgical History: Reports: None Cardiovascular Surgical History: Reports: None Respiratory Surgical History: Reports: None GI Surgical History: Reports: Colonoscopy, Hernia, Abdominal Female Surgical History: Reports: Section Endocrine Surgical History: Reports: None Neurological Surgical History: Reports: None Musculoskeletal Surgical History: Reports: None Oncologic Surgical History: Reports: None Dermatological Surgical History: Reports: None Social & Family History - Tobacco Use Tobacco Use Status *Q: Never Tobacco User - Caffeine Use Caffeine Use: Reports: None - Recreational Drug Use Recreational Drug Use: No ED ROS GENERAL - Review of Systems Review Of Systems: See Below Constitutional: Reports: No Symptoms HEENT: Reports: No Symptoms Respiratory: Reports: No Symptoms Cardiovascular: Reports: No Symptoms Endocrine: Reports: No Symptoms GI/Abdominal: Reports: No Symptoms : Reports: No Symptoms Musculoskeletal: Reports: No Symptoms Skin: Reports: No Symptoms Neurological: Reports: No Symptoms Psychiatric: Reports: No Symptoms Hematologic/Lymphatic: Reports: No Symptoms Immunologic: Reports: No Symptoms ED EXAM, GENERAL - Physical Exam Exam: See Below Exam Limited By: No Limitations General Appearance: Alert, WD/WN Respiratory/Chest: No Respiratory Distress, Lungs Clear Cardiovascular: Normal Peripheral Pulses, Regular Rate, Rhythm GI/Abdominal: Normal Bowel Sounds, Soft, Non-Tender Extremities: Normal Range of Motion, Non-Tender Neurological: Alert, Oriented #1 Interpretation EKG Date: 11/17/20 Time: 13:30 Rhythm: NSR Rate (Beats/Min): 80 QT: Normal Course - Vital Signs Last Recorded V/S: Last Vital Signs Temp 98.8 F 11/17/20 13:30 Pulse 76 11/17/20 15:12 Resp 16 11/17/20 15:12 BP 175/88 H 11/17/20 15:12 Pulse Ox 96 11/17/20 15:12 - Orders/Labs/Meds Orders: Active Orders 24 hr Category Date Time Status EKG Documentation Completion [RC] STAT Care 11/17/20 13:28 Active Labs: Laboratory Tests 11/17/20 11/17/20 11/17/20 Range/Units 13:57 13:57 15:12 WBC 5.61 (4.0-11.0) K/uL RBC 4.84 (4.30-5.90) M/uL Hgb 13.7 (12.0-16.0) g/dL Hct 43.7 (36.0-46.0) % MCV 90.3 (80.0-98.0) fL MCH 28.3 (27.0-32.0) pg MCHC 31.4 (31.0-37.0) g/dL RDW Std Deviation 44.7 (28.0-62.0) fl RDW Coeff of Krishna 14 (11.0-15.0) % Plt Count 210 (150-400) K/uL MPV 9.50 (7.40-12.00) fL Neut % (Auto) 68.0 (48.0-80.0) % Lymph % (Auto) 20.9 (16.0-40.0) % [place]t % (Auto) 8.9 (0.0-15.0) % Eos % (Auto) 2.0 (0.0-7.0) % Baso % (Auto) 0.2 (0.0-1.5) % Neut # (Auto) 3.8 (1.4-5.7) K/uL Lymph # (Auto) 1.2 (0.6-2.4) K/uL [place] # (Auto) 0.5 (0.0-0.8) K/uL Eos # (Auto) 0.1 (0.0-0.7) K/uL Baso # (Auto) 0.0 (0.0-0.1) K/uL Nucleated RBC % 0.0 /100WBC Nucleated RBCs # 0 K/uL Sodium 141 (136-145) mmol/L Potassium 4.0 (3.5-5.1) mmol/L Chloride 105 (98-107) mmol/L Carbon Dioxide 25.7 (21.0-32.0) mmol/L BUN 20 H (7.0-18.0) mg/dL Creatinine 0.9 (0.6-1.0) mg/dL Est Cr Clr Drug Dosing 55.25 mL/min Estimated GFR (MDRD) > 60.0 ml/min Glucose 154 H (74-106) mg/dL Calcium 8.7 (8.5-10.1) mg/dL Total Bilirubin 0.3 (0.2-1.0) mg/dL AST 17 (15-37) IU/L ALT 25 (14-63) IU/L Alkaline Phosphatase 108 (46-116) U/L Creatine Kinase 62 (26-308) U/L Troponin I < 0.050 (0.000-0.056) ng/mL Total Protein 7.0 (6.4-8.2) g/dL Albumin 3.4 (3.4-5.0) g/dL Globulin 3.6 (2.6-4.0) g/dL Albumin/Globulin Ratio 0.9 (0.9-1.6) Urine Color YELLOW Urine Appearance CLEAR Urine pH 5.5 (5.0-8.0) Ur Specific Outlook 1.020 (1.001-1.035) Urine Protein NEGATIVE (NEGATIVE) mg/dL Urine Glucose (UA) NEGATIVE (NEGATIVE) mg/dL Urine Ketones NEGATIVE (NEGATIVE) mg/dL Urine Occult Blood NEGATIVE (NEGATIVE) Urine Nitrite NEGATIVE (NEGATIVE) Urine Bilirubin NEGATIVE (NEGATIVE) Urine Urobilinogen 0.2 (<2.0) EU/dL Ur Leukocyte Esterase NEGATIVE (NEGATIVE) - Re-Assessments/Exams Free Text/Narrative Re-Assessment/Exam: 11/17/20 15:47 Patient asymptomatic still from elevated blood pressure. We DVT study is negative labs reviewed. Patient remains symptomatic free will be discharged home to follow-up primary care physician for blood pressure control. Departure - Departure Time of Disposition: 15:47 Disposition: Home, Self-Care 01 Condition: Good Clinical Impression: Asymptomatic hypertension Instructions: Hypertension, Adult, [id number] Referrals: Yunier Smith MD [Primary Care Provider] - Forms: ED Department Discharge Additional Instructions: The following information is given to patients seen in the emergency department who are being discharged to home. This information is to outline your options for follow-up care. We provide all patients seen in our emergency department with a follow-up referral. The need for follow-up, as well as the timing and circumstances, are variable depending upon the specifics of your emergency department visit. If you don't have a primary care physician on staff, we will provide you with a referral. We always advise you to contact your personal physician following an emergency department visit to inform them of the circumstance of the visit and for follow-up with them and/or the need for any referrals to a consulting specialist. The emergency department will also refer you to a specialist when appropriate. This referral assures that you have the opportunity for follow-up care with a specialist. All of these measure are taken in an effort to provide you with optimal care, which includes your follow-up. Under all circumstances we always encourage you to contact your private physician who remains a resource for coordinating your care. When calling for follow-up care, please make the office aware that this follow-up is from your r ecent emergency room visit. If for any reason you are refused follow-up, please contact the [facility] Emergency Department at and asked to speak to the emergency department charge nurse. Please follow up with your primary care physician. If you do not have a primary care physician, see below: [facility] [address] [place] [address] [facility] [address] [place] [address] Please follow-up with your primary care physician for blood pressure control. If you have any headaches chest pain difficulty urinating or vision changes please return to the ED immediately. Sepsis Event Note (ED) - Evaluation Sepsis Screening Result: No Definite Risk - Focused Exam Vital Signs: Vital Signs Temp Pulse Resp BP Pulse Ox 11/17/20 15:12 76 16 175/88 H 96 11/17/20 13:30 98.8 F 87 16 211/119 H 96 - Assessment/Plan Plan: Patient is a 65-year-old female who presents today for elevated blood pressure. Patient is asymptomatic currently from blood pressure. Patient does have some tenderness of the left calf and recent knee replacement will perform a DVT study and reassess.
[2020-11-17 14:40] LABS: BLOOD UREA NITROGEN,BUN 20 mg/dL (7.0-18.0); CARBON DIOXIDE,CO2 25.7 mmol/L (21.0-32.0); CHLORIDE,CL 105 mmol/L (98-107); GLUCOSE RANDOM 154 mg/dL (74-106); SODIUM,NA 141 mmol/L (136-145)
--- NOTE | 2020-11-17 14:40 | CR ---
Indication: Hypertension Technique: Chest 1 view Comparison: None Findings/Impression: Cardiovascular and mediastinum: Cardiomegaly. Mediastinum is within normal limits. Lungs and pleural space: Lungs are clear. No sign of infiltrate or mass. No sign of pleural effusion. No pneumothorax. Bones and soft tissues: No significant findings. Dictated by Nicole Sterling MD @ Nov 17 2020 2:38PM Signed by Dr. Nicole Sterling @ Nov 17 2020 2:39PM
--- NOTE | 2020-11-17 15:03 | US ---
INDICATION: Calf pain TECHNIQUE: Ultrasound venous duplex lower left extremity. Compression venous exam was performed using angle-scale, color Doppler, and spectral Doppler analysis. COMPARISON: None FINDINGS: Sonographic imaging demonstrates the left common femoral, deep femoral, superficial femoral, popliteal, posterior tibial and greater saphenous veins to be fully compressible with normal color Doppler blood flow. Soft tissue edema adjacent to a scar anterior to the knee. IMPRESSION: No evidence of deep venous thrombosis left lower extremity. Soft tissue edema adjacent to a scar anterior to the knee Dictated by Ventura Mcqueen MD @ Nov 17 2020 3:01PM Signed by Dr. Ventura Mcqueen @ Nov 17 2020 3:01PM
[2020-11-17 16:37] VITALS: BP 195/106; PULSE 73
== END 2020-11-17 16:10 | disposition home or self-care (01) ==
LOC: MW.ED 13:19
DX: I10 Essential (primary) hypertension (principal); M25.562 Pain in left knee; E66.9 Obesity, unspecified; Z68.43 Body mass index [BMI] 50.0-59.9, adult; Z79.899 Other long term (current) drug therapy
CPT/HCPCS: 36415; 71045; 71045-26; 80053; 81003; 82550; 84484; 85025; 93005; 93971-26-LT; 93971-LT; 99284-25

== ENCOUNTER 2023-07-19 09:27 | Inpatient (IN) | payer OTHER ==
[2023-07-19] MEDS ORDERED: Sodium Chloride 0.9% 2.5 ML Syringe FLUSH PRN (10:03)
[2023-07-19] MEDS ORDERED: Sodium Chloride 0.9% 10 ML Syringe FLUSH PRN (10:03)
[2023-07-19] MEDS ORDERED: Sodium Chloride 0.9% 20 ML SDV IV PRN (10:03)
[2023-07-19] MEDS ORDERED: Ondansetron 4 MG/2 ML SDV IVPUSH PRN ×2 (10:06→10:23)
[2023-07-19] MEDS ORDERED: Scopolamine 1.5 MG Transdermal Patch TOP ONE (10:06)
[2023-07-19] MEDS ORDERED: HYDROmorphone 2 MG/ML Syringe IVPUSH PRN ×2 (10:07→17:44)
[2023-07-19] MEDS ORDERED: diphenhydrAMINE 50 MG/ML SDV IVPUSH PRN (10:08)
[2023-07-19] MEDS ORDERED: Lactated Ringers 1,000 ML IV SCH (10:15)
[2023-07-19] MEDS ORDERED: HYDROmorphone 1 MG/ML Syringe IVPUSH PRN ×3 (10:19→17:55)
[2023-07-19] MEDS ORDERED: Naloxone 0.4 MG/ML SDV IVPUSH PRN (10:23)
[2023-07-19] MEDS ORDERED: droPERidol 5 MG/2 ML SDV IVPUSH PRN (10:23)
[2023-07-19] MEDS ORDERED: fentaNYL 50 MCG/ML SDV IVPUSH PRN (10:23)
[2023-07-19] MEDS ORDERED: Albuterol 0.083% 2.5 MG/3 ML Neb Soln NEB PRN (10:23)
[2023-07-19] MEDS ORDERED: Morphine 2 MG/ML SYRINGE IVPUSH PRN (10:23)
[2023-07-19] MEDS ORDERED: Metoclopramide 10 MG/2 ML SDV IVPUSH PRN (10:23)
[2023-07-19 10:39] LABS: BASOPHILS ABSOLUTE AUTO 0.02 K/uL (0.00-0.20); BASOPHILS PERCENT AUTO 0.3 % (0.0-1.0); EOSINOPHILS ABSOLUTE AUTO 0.12 K/uL (0.00-0.45); EOSINOPHILS PERCENT AUTO 1.7 % (0.0-6.0); HEMATOCRIT 41.4 % (37.0-47.0); HEMOGLOBIN 13.5 g/dL (12.0-16.0); IMMATURE GRAN ABSOLUTE AUTO 0.02 K/uL (0.00-0.05); IMMATURE GRAN PERCENT AUTO 0.3 % (0.0-0.4); LYMPHOCYTES ABSOLUTE AUTO 1.28 K/uL (1.00-4.80); LYMPHOCYTES PERCENT AUTO 17.8 % (24.0-44.0); MEAN CORPUSCULAR HEMOGLOBIN 29.3 pg (28.0-32.0); MEAN CORPUSCULAR HGB CONC 32.6 g/dL (32.0-36.0); MEAN CORPUSCULAR VOLUME 89.8 fL (83.0-99.0); MEAN PLATELET VOLUME 8.2 fL (9.4-12.3); MONOCYTES ABSOLUTE AUTO 0.41 K/uL (0.00-0.80); MONOCYTES PERCENT AUTO 5.7 % (0.0-8.0); NEUTROPHILS ABSOLUTE AUTO 5.34 K/uL (1.80-7.70); NEUTROPHILS PERCENT AUTO 74.2 % (41.0-71.0); PLATELET COUNT,PLT 416 K/uL (150-400); RED BLOOD CELL COUNT 4.61 M/uL (4.10-5.30); WHITE BLOOD CELL COUNT,WBC 7.19 K/uL (3.9-11.3)
[2023-07-19] MEDS ORDERED: Indocyanine Green 25 MG SDV INJECT ONE (10:49)
[2023-07-19 10:58] LABS: HEMOGLOBIN A1C 6.3 %
[2023-07-19 11:07] LABS: A/G RATIO 0.6 (0.9-1.6); ALBUMIN 2.8 g/dL (3.4-5.0); BILIRUBIN TOTAL 0.3 mg/dL (0.2-1.0); CALCIUM 9.3 mg/dL (8.5-10.1); CARBON DIOXIDE,CO2 29.5 mmol/L (21.0-32.0); CREATININE 0.9 mg/dL (0.6-1.0); EST CRCL DRUG DOSING (CG) 53.1 mL/min; POTASSIUM,K 3.8 mmol/L (3.5-5.1); PROTEIN TOTAL,TP 7.2 g/dL (6.4-8.2)
[2023-07-19] MEDS: Piperacillin/Tazobactam 3.375 GM in Sodium Chloride 0.9% 100 ML IV SCH ×3 (11:20→23:35)
[2023-07-19] MEDS ORDERED: Dexamethasone 4 MG/ML 5 ML MDV ONE (14:15)
[2023-07-19] MEDS ORDERED: Rocuronium Bromide 50 MG/5 ML Syringe ONE (14:15)
[2023-07-19] MEDS ORDERED: Sugammadex Sodium 200 MG/2 ML VIAL ONE (14:15)
[2023-07-19] MEDS ORDERED: Ketorolac 30 MG/ML SDV ONE (14:15)
[2023-07-19] MEDS ORDERED: Propofol 200 MG/20 ML SDV ONE (14:15)
[2023-07-19] MEDS ORDERED: Lidocaine 2% 5 ML SDV ONE (14:15)
[2023-07-19] MEDS ORDERED: Ondansetron 4 MG/2 ML SDV ONE (14:15)
[2023-07-19] MEDS ORDERED: fentaNYL 100 MCG/2 ML SDV ONE (14:16)
[2023-07-19] MEDS ORDERED: EPINEPHrine 1 MG/1 ML Amp ONE (14:19)
[2023-07-19] MEDS ORDERED: Ropivacaine 0.5% 5 MG/ML 30 ML SDV ONE (14:19)
[2023-07-19] MEDS ORDERED: Bupivacaine 0.25% 30 ML SDV ONE (14:20)
[2023-07-19] MEDS ORDERED: Bupivacaine 0.5% 30 ML SDV ONE ×2 (14:27→16:08)
[2023-07-19] MEDS ORDERED: Bupivacaine 0.5% 10 ML SDV ONE (16:09)
[2023-07-19] MEDS ORDERED: Morphine 10 MG/ML SDV ONE (16:30)
[2023-07-19 18:22] LABS: HEMATOCRIT 40.2 % (37.0-47.0); HEMOGLOBIN 13.3 g/dL (12.0-16.0)
[2023-07-19 18:54] LABS: A/G RATIO 0.7 (0.9-1.6); ALBUMIN 2.7 g/dL (3.4-5.0); BILIRUBIN TOTAL 0.4 mg/dL (0.2-1.0); CALCIUM 8.9 mg/dL (8.5-10.1); CARBON DIOXIDE,CO2 28.3 mmol/L (21.0-32.0); EST CRCL DRUG DOSING (CG) 47.79 mL/min; POTASSIUM,K 4.2 mmol/L (3.5-5.1); PROTEIN TOTAL,TP 6.7 g/dL (6.4-8.2)
[2023-07-19] MEDS: Ketorolac 30 MG/ML SDV IVPUSH SCH (20:49)
[2023-07-19] MEDS: Cyclobenzaprine 10 MG Tab PO SCH (23:10)
[2023-07-20] MEDS: Ketorolac 30 MG/ML SDV IVPUSH SCH ×3 (01:45→13:48)
[2023-07-20] MEDS: Cyclobenzaprine 10 MG Tab PO SCH ×3 (05:32→21:36)
[2023-07-20] MEDS: Piperacillin/Tazobactam 3.375 GM in Sodium Chloride 0.9% 100 ML IV SCH (05:32)
[2023-07-20 06:38] LABS: HEMATOCRIT 36.8 % (37.0-47.0); HEMOGLOBIN 11.9 g/dL (12.0-16.0); MEAN CORPUSCULAR HEMOGLOBIN 29.3 pg (28.0-32.0); MEAN CORPUSCULAR HGB CONC 32.3 g/dL (32.0-36.0); MEAN CORPUSCULAR VOLUME 90.6 fL (83.0-99.0); MEAN PLATELET VOLUME 8.4 fL (9.4-12.3); PLATELET COUNT,PLT 379 K/uL (150-400); RED BLOOD CELL COUNT 4.06 M/uL (4.10-5.30); WHITE BLOOD CELL COUNT,WBC 11.96 K/uL (3.9-11.3)
[2023-07-20 07:13] LABS: A/G RATIO 0.7 (0.9-1.6); ALBUMIN 2.4 g/dL (3.4-5.0); BILIRUBIN TOTAL 0.6 mg/dL (0.2-1.0); CALCIUM 8.5 mg/dL (8.5-10.1); CARBON DIOXIDE,CO2 29.7 mmol/L (21.0-32.0); CREATININE 1.2 mg/dL (0.6-1.0); EST CRCL DRUG DOSING (CG) 39.82 mL/min; POTASSIUM,K 4.1 mmol/L (3.5-5.1)
[2023-07-20] MEDS ORDERED: Lactated Ringers 1,000 ML IV STA (07:47)
[2023-07-20] MEDS: Omeprazole 20 MG Cap.CR PO SCH (07:59)
[2023-07-20] MEDS: Bisacodyl 5 MG Tab PO SCH (08:00)
[2023-07-20] MEDS: Lactated Ringers 1,000 ML IV SCH ×2 (09:28→18:56)
[2023-07-20] MEDS: metroNIDAZOLE 250 MG Tab PO SCH ×2 (10:23→17:39)
[2023-07-20] MEDS: Ciprofloxacin 500 MG Tab PO SCH ×2 (10:24→21:37)
[2023-07-20] MEDS ORDERED: Enoxaparin 40 MG/0.4 ML Syringe SUBCUT SCH (14:15)
[2023-07-20] MEDS: Heparin Sodium 5,000 Units/ML Vial SUBCUT SCH ×2 (16:11→21:37)
[2023-07-20 16:28] LABS: CALCIUM 8.5 mg/dL (8.5-10.1); CARBON DIOXIDE,CO2 32.3 mmol/L (21.0-32.0); CREATININE 1.3 mg/dL (0.6-1.0); EST CRCL DRUG DOSING (CG) 36.76 mL/min; POTASSIUM,K 4.3 mmol/L (3.5-5.1)
[2023-07-20] MEDS: Acetaminophen/HYDROcodone 325-5 MG Tab PO PRN (17:40)
[2023-07-21] MEDS: metroNIDAZOLE 250 MG Tab PO SCH ×3 (02:02→17:07)
[2023-07-21] MEDS: Lactated Ringers 1,000 ML IV SCH (04:46)
[2023-07-21] MEDS: Acetaminophen/HYDROcodone 325-5 MG Tab PO PRN ×2 (05:29→18:25)
[2023-07-21 06:44] LABS: HEMATOCRIT 36.3 % (37.0-47.0); HEMOGLOBIN 11.9 g/dL (12.0-16.0); MEAN CORPUSCULAR HEMOGLOBIN 29.5 pg (28.0-32.0); MEAN CORPUSCULAR HGB CONC 32.8 g/dL (32.0-36.0); MEAN CORPUSCULAR VOLUME 90.1 fL (83.0-99.0); MEAN PLATELET VOLUME 8.7 fL (9.4-12.3); PLATELET COUNT,PLT 411 K/uL (150-400); RED BLOOD CELL COUNT 4.03 M/uL (4.10-5.30); WHITE BLOOD CELL COUNT,WBC 12.04 K/uL (3.9-11.3)
[2023-07-21 07:09] LABS: A/G RATIO 0.6 (0.9-1.6); ALBUMIN 2.4 g/dL (3.4-5.0); BILIRUBIN TOTAL 0.4 mg/dL (0.2-1.0); CALCIUM 8.7 mg/dL (8.5-10.1); CARBON DIOXIDE,CO2 27.8 mmol/L (21.0-32.0); CREATININE 1.1 mg/dL (0.6-1.0); EST CRCL DRUG DOSING (CG) 43.44 mL/min; MAGNESIUM 1.9 mg/dL (1.8-2.4); PHOSPHORUS 3.3 mg/dL (2.6-4.7); POTASSIUM,K 3.9 mmol/L (3.5-5.1); PROTEIN TOTAL,TP 6.4 g/dL (6.4-8.2)
[2023-07-21] MEDS: Cyclobenzaprine 10 MG Tab PO SCH ×3 (07:19→21:47)
[2023-07-21] MEDS: Omeprazole 20 MG Cap.CR PO SCH (07:20)
[2023-07-21] MEDS: Heparin Sodium 5,000 Units/ML Vial SUBCUT SCH ×3 (07:20→21:46)
[2023-07-21] MEDS: Ciprofloxacin 500 MG Tab PO SCH ×2 (09:47→21:47)
[2023-07-21] MEDS: Sennosides/Docusate Sodium 50-8.6 MG Tab PO SCH ×2 (12:00→21:47)
[2023-07-21] MEDS: Bisacodyl 5 MG Tab PO SCH (12:00)
[2023-07-22] MEDS: metroNIDAZOLE 250 MG Tab PO SCH ×2 (01:37→09:07)
[2023-07-22] MEDS: Heparin Sodium 5,000 Units/ML Vial SUBCUT SCH (06:02)
[2023-07-22] MEDS: Cyclobenzaprine 10 MG Tab PO SCH (06:03)
[2023-07-22 06:48] LABS: CALCIUM 8.5 mg/dL (8.5-10.1); CARBON DIOXIDE,CO2 29.4 mmol/L (21.0-32.0); CREATININE 0.9 mg/dL (0.6-1.0); EST CRCL DRUG DOSING (CG) 53.1 mL/min; POTASSIUM,K 3.8 mmol/L (3.5-5.1)
[2023-07-22] MEDS: Omeprazole 20 MG Cap.CR PO SCH (07:04)
[2023-07-22] MEDS: Bisacodyl 5 MG Tab PO SCH (09:07)
[2023-07-22] MEDS: Ciprofloxacin 500 MG Tab PO SCH (09:08)
[2023-07-22] MEDS: Sennosides/Docusate Sodium 50-8.6 MG Tab PO SCH (09:15)
[2023-07-22] MEDS: Acetaminophen/HYDROcodone 325-5 MG Tab PO PRN (09:18)
[2023-07-22 10:55] VITALS: BP 133/75; PULSE 80
== END 2023-07-22 10:50 | disposition home or self-care (01) | DRG 415 ==
LOC: MW.MS 09:27 → OBSVTOIN 16:33 → MW.MS 16:33
PROVIDERS: ADMIT Surgery; ATTEND Surgery
PROC: 0FT40ZZ Resection of Gallbladder, Open Approach (ICD-10-PCS; principal; 2023-07-20)
PROC: 0FJ44ZZ Inspection of Gallbladder, Percutaneous Endoscopic Approach (ICD-10-PCS; 2023-07-20)
DX: K80.00 Calculus of gallbladder with acute cholecystitis without obstruction (principal); Z68.42 Body mass index [BMI] 45.0-49.9, adult; K82.A1 Gangrene of gallbladder in cholecystitis; I10 Essential (primary) hypertension; E66.9 Obesity, unspecified; M19.90 Unspecified osteoarthritis, unspecified site; E78.00 Pure hypercholesterolemia, unspecified; R73.09 Other abnormal glucose; K59.00 Constipation, unspecified; Z98.890 Other specified postprocedural states; Z79.899 Other long term (current) drug therapy
CPT/HCPCS: 00790; 36415; 51702; 64488; 80048; 80053; 83036; 83735; 84100; 85014; 85018; 85025; 85027; 87070; 87075; 87077; 87186; 87205; A9270-GY; J0131; J0171; J1100; J1644; J1885; J2270; J2405; J2543; J2704; J2795; J3010; J3490; J7030; J7120